=== PATIENT | male | born 1945 | race Caucasian/White ===

== ENCOUNTER → 2018-09-03 | Outpatient (CLI) | payer OTHER, BC ==
[~2018-09-03] VITALS: Ht 180.3 cm; Wt 104.3 kg
[~2018-09-03] MED LIST: ASPIR 8181 MG PO; CARVEDILOL6.25 M1 PO; LISINOPRIL20 MG PO; LOVASTATIN 20 M20 MG PO; NEURONTIN 300300 M1 PO; PROTONIX40 M1 PO
--- NOTE | ~2018-09-03 | P ---
[facility] [place] [address] PROCEDURE REPORT Name: JENNYLUIS Rachele Room #: [facility].#: [id number] Admission: 09/03/18 Attend Phys: Juan Naylor MD Discharge: Date of : 41 Report #: [id number] THIS REPORT FOR: //name// CC: FAM unknown Juan Naylor PREOPERATIVE DIAGNOSIS: Atrial fibrillation. POSTOPERATIVE DIAGNOSIS: Atrial fibrillation. HISTORY OF PRESENT ILLNESS: The patient is a 73-year-old with history of severe COPD as well as atrial fibrillation and congestive heart failure, status post Bi-V ICD, who has recently been hospitalized for recurrent heart failure exacerbations. His biventricular pacing is less than 90%. He cannot be on anticoagulation due to bleeding issues. He is here for AV node ablation. ANESTHESIA: The patient underwent MAC anesthesia with no anesthesia-related complications. DESCRIPTION OF PROCEDURE: The patient underwent informed consent. We discussed the details of the procedure including the risks, which include but not limited to bleeding, vascular damage as well as stroke or IL. He understood these risks and was willing to proceed. As such, the patient was brought to the EP laboratory in a fasting and sedated state and prepped and draped in sterile fashion. His ICD was interrogated prior to the procedure and found to be functioning within normal limits. It was reprogrammed to VVI mode and therapies were disabled. Next, I obtained access to the right femoral vein x 1 and placed a SR0 sheath into the right atrium and 8 mm ablation catheter into the right atrium. Next, I found the bundle of His and ablation was performed, initially there was a right bundle-branch block that was created by my ablation. I pulled back slightly and deflected slightly lower and then there was complete heart block. We monitored for a period of 20 minutes and there was no return of conduction. His device was reinterrogated and found to be functioning and his device was programmed to a VVIR 80-120 and his VT therapies were reenabled. There were no procedural complications. CONCLUSIONS: 1. Successful atrioventricular node ablation. 2. Successful [facility] biventricular ICD reprogramming. By: [id number] Juan Naylor MD /nt
[2018-09-03 07:15] VITALS: BP 99/61
[2018-09-03 07:23] LABS: HEMATOCRIT 37.1 % (42.0-52.0); HEMOGLOBIN 12.2 gm/dL (14.0-18.0); MCH 30.6 pg (26.0-34.0); MCV 92.7 fL (80.0-100.0); PLATELET COUNT 158 thou/uL (150-400); RDW 16.1 % (10.5-14.5); WBC 7.8 thou/uL (4.0-11.0)
[2018-09-03 07:28] LABS: CALCIUM 8.4 mg/dL (8.5-10.1); CREATININE 1.1 mg/dL (0.7-1.3)
[2018-09-03 07:34] LABS: APTT 29.2 Seconds (24.5-32.8); PROTIME 10.6 Seconds (9.3-11.4)
[2018-09-03 07:35] LABS: ALBUMIN 2.7 g/dL (3.4-5.0); TOTAL BILIRUBIN 0.9 mg/dL (<0.1-1.0)
[2018-09-03 08:25] LABS: ABSOLUTE NEUTROPHILS 6.4 thou/uL (1.4-8.2); METAMYELOCYTES 1 %; MYELOCYTES 1 %
[2018-09-03 08:26] LABS: ANISOCYTOSIS 1+
== END | disposition home or self-care (01) ==
LOC: CATH 06:46
PROVIDERS: Internal Medicine Cardiovascular Disease
DX: I48.91 Unspecified atrial fibrillation (principal); I11.0 Hypertensive heart disease with heart failure; I50.9 Heart failure, unspecified; I25.10 Atherosclerotic heart disease of native coronary artery without angina pectoris; I25.5 Ischemic cardiomyopathy; J43.9 Emphysema, unspecified; E78.5 Hyperlipidemia, unspecified; K21.9 Gastro-esophageal reflux disease without esophagitis; Z95.1 Presence of aortocoronary bypass graft; Z95.5 Presence of coronary angioplasty implant and graft; Z95.810 Presence of automatic (implantable) cardiac defibrillator; Z79.01 Long term (current) use of anticoagulants; Z87.891 Personal history of nicotine dependence; Z79.899 Other long term (current) drug therapy; Z79.82 Long term (current) use of aspirin
CPT/HCPCS: 62110; 62900; 70005